=== PATIENT | female | born 1945 | race African-American/Black ===

== ENCOUNTER 2017-07-20 17:20 | Inpatient (IN) | payer OTHER ==
[2017-07-20] VITALS (14 sets, daily range): BP systolic 143–184; BP diastolic 71–104
[~2017-07-20] VITALS: Ht 154.9 cm; Wt 70.6 kg
--- NOTE | ~2017-07-20 | HC ---
[facility] [place] [address] CONSULTATION Name: COOKIE CASAS Room #: 451-P [facility] IN M.R.#: [id number] Admission: 07/20/17 Attend Phys: Stephen Galeana MD Discharge: 07/31/17 Date of : 49 Report #: [id number] THIS REPORT FOR: //name// CC: Stephen Vazquez DATE OF SERVICE: 07/21/2017 REASON FOR CONSULTATION: Recurrent angioedema. HISTORY OF PRESENT ILLNESS: The patient is a 57-year-old female who has a known history of recurrent angioedema. She had airway distress and angioedema of the upper airway and was admitted to [facility]. On 07/18/2017, she was intubated and transferred to [facility]. She has been intubated. She has been sedated and on the ventilator. She failed a weaning trial with CPAP. Extubation is planned for this week. She is stable now. We have been consulted due to her airway. PHYSICAL EXAMINATION: A middle age woman, sedated and on ventilator. She has multiple central lines in. She has oral intubation. Neck is simple without evidence of swelling. Her lips are normal in appearance. While her tongue was protruding some, I palpated her tongue and it easily pushes back into her mouth. There is no obvious tongue swelling on palpation or examination. ASSESSMENT AND PLAN: Recurrent angioedema with emergent airway compromise requiring intubation and airway management. Now, stable and improved on steroids and IV Benadryl. RECOMMENDATION: 1. Extubate when there are more people around ____ on a non-holiday, preferably tomorrow. 2. Continue steroids and IV Benadryl for now. 3. Add Zyrtec 20 mg orally when extubated tomorrow. 4. Outpatient evaluation by Allergy/Immunology. <ELECTRONICALLY SIGNED> By: Pito Crowell MD 09/09/17 [id number] Pito Crowell MD /nt
--- NOTE | ~2017-07-20 | HC ---
[facility] [place] [address] CONSULTATION Name: COOKIE CASAS Room #: 451-P ADM IN M.R.#: [id number] Admission: 07/20/17 Attend Phys: Stephen Galeana MD Discharge: Date of : 49 Report #: [id number] THIS REPORT FOR: //name// CC: Enriqueta Vazquez DATE OF SERVICE: 07/20/2017 REFERRING PROVIDER: Enriqueta Tilley, nurse practitioner and Dr. Stephen Galeana. REASON FOR CONSULTATION: Respiratory failure. HISTORY OF PRESENT ILLNESS: Our group was asked to see the patient in consultation while hospitalized at [facility]. The patient transferred from [facility] where she had recurrent episode of angioedema. The patient is currently on mechanical ventilatory support, unable to give any further history. We were asked to evaluate for further recommendations regarding ventilator weaning and transferred to our facility for ENT services and evaluation. The patient apparently has significant food allergies, exact etiology unclear, has been on Benadryl and systemic steroids for this. Currently, resting comfortably in bed and sedated on propofol and Versed drips, apparently this is required to provide adequate sedation. ALLERGIES: Unknown. PAST MEDICAL HISTORY: 1. Diabetes mellitus type 2. 2. Hypertension. 3. Hyperlipidemia. CURRENT MEDICATIONS: 1. Albuterol. 2. Benadryl 25 q. 6 hours. 3. Enoxaparin. 4. Fentanyl p.r.n. 5. Insulin sliding scale. 6. Solu-Medrol 62.5 twice daily. 7. Propofol GTT. 8. Pepcid. SOCIAL HISTORY: Unobtainable due to current status. FAMILY HISTORY: Unobtainable due to current status. [facility] [address] [place] [address] CONSULTATION Name: COOKIE CASAS Mat Room #: 451-P ADM IN M.R.#: [id number] Admission: 07/20/17 Attend Phys: Stephen Galeana MD Discharge: Date of : 49 Report #: [id number] REVIEW OF SYSTEMS: Otherwise, unobtainable due to current status. PHYSICAL EXAMINATION: VITAL SIGNS: Afebrile, pulse 70s, respiratory rate of 14, still on the ventilator and blood pressure ____. GENERAL: This is an elderly woman on mechanical ventilatory support, no distress. ENT: Reveals some tongue edema. A 7.[address]. NECK: Supple, no lymphadenopathy. LUNGS: Clear. No wheezes or crackles or significant secretions appreciated. CARDIOVASCULAR: Heart regular. No murmurs noted. ABDOMEN: Soft, nontender, no masses, no hepatosplenomegaly. EXTREMITIES: Warm, 2+ pulses, no edema. INTEGUMENT: Without rash. NEUROLOGIC: The patient arousable to deep stimuli, but heavily sedated at this time. LABORATORY DATA: Chest x-ray revealed clear lung ozuna, endotracheal tube in good position and right IJ central line is in place. IMPRESSION: 1. Respiratory failure due to angioedema. 2. Angioedema of unclear etiology, likely a food allergy, exact culprit is unclear. 3. Hypertension. 4. Diabetes mellitus type 2. SUGGESTIONS: 1. Minimize sedation. 2. Mechanical ventilator weaning efforts. The patient should tolerate spontaneous breathing trials ____ upper airway edema, ____ extubation, appears to be markedly improved. 3. Continue steroids and anti-histamines. 4. ENT evaluation. 5. At some point post extubation, allergy evaluation. 6. Further recommendations to follow. Thank you for requesting our suggestions. <ELECTRONICALLY SIGNED> By: Maged Velazco MD 07/31/17 1304 2219 0427 Maged Velazco MD /nt
--- NOTE | ~2017-07-20 | O ---
[facility] [place] [address] OPERATIVE REPORT Name: COOKIE CASAS Room #: 240-P ADM IN M.R.#: [id number] Admission: 07/20/17 Attend Phys: Stephen Galeana MD Discharge: Date of : 47 Report #: [id number] THIS REPORT FOR: //name// CC: Stephen Vazquez MD DATE OF SERVICE: 07/23/2017 PREOPERATIVE DIAGNOSIS: Otolaryngic reexamination of upper airway secondary to airway obstruction. POSTOPERATIVE DIAGNOSIS: Otolaryngic reexamination of upper airway secondary to airway obstruction. OPERATION PERFORMED: Flexible nasopharyngoscopy. INDICATIONS: The patient is a 71-year-old female transferred to [place] after innervation at [facility] on 07/17/2017 for presumed angioedema. The patient has been unable to be extubated, I was asked to reevaluate. She was initially evaluated by my partner, Dr. Crowell on 07/20/2017. DESCRIPTION OF PROCEDURE: In the patient's ICU room, topical anesthesia was achieved with 4% lidocaine and 1% Doug-Synephrine nasal spray. After an appropriate period, flexible laryngoscope was passed through the right naris. Examination was made of the upper airway, which was made difficult by retained secretions, endotracheal tube and orogastric tube present in the pharynx. Examination revealed a very swollen pharynx at the level of the base of tongue extending into the hypopharynx. There was edema of the epiglottis surrounding an endotracheal tube in place. The edema was about a 4 mm airway. The oropharynx was suctioned during the examination by the patient's nurse. Endotracheal tube was then removed. Recommendations were made to not extubate at this point. Discussion was given to her and Dr. Velazco. <ELECTRONICALLY SIGNED> By: Mike Cotto MD 07/25/17 1626 1519 1544 Mike Cotto MD /nt
--- NOTE | ~2017-07-20 | O ---
[facility] [place] [address] OPERATIVE REPORT Name: COOKIE CASAS Room #: 240-P ADM IN M.R.#: [id number] Admission: 07/20/17 Attend Phys: Stephen Galeana MD Discharge: Date of : 47 Report #: [id number] THIS REPORT FOR: //name// CC: Stephen Vazquez MD DATE OF SERVICE: 07/25/2017 SURGEON: Mike Cotto MD. PREOPERATIVE DIAGNOSES: 1. Angioedema, upper pharynx. 2. Airway obstruction. POSTOPERATIVE DIAGNOSES: 1. Angioedema, upper pharynx. 2. Airway obstruction. OPERATION PERFORMED: 1. Tracheotomy with Paul flap reconstruction. 2. Direct laryngoscopy with biopsy. INDICATIONS FOR PROCEDURE: The patient is a 71-year-old female admitted through the Emergency Department on transfer from [facility] last week. She had presented to [place] with airway obstruction requiring intubation on 07/17/2017. She has been intubated since then with the possibility of extubation secondary to persistent airway edema. This is her fourth episode of angioedema, this one is the most serious. No specific trigger has been isolated. The patient has been consulted to an electrical logging operator. DESCRIPTION OF PROCEDURE: The patient was brought to the operating room and placed supine on the operating table. After adequate general anesthesia was achieved via an indwelling endotracheal tube, the shoulder was placed and neck was extended. She was prepped with Betadine and draped in a sterile fashion. Planned incision was marked out just above the manubrium in a relaxed skin tension line and injected with 1% Xylocaine with 1:100,000 epinephrine. After an appropriate period, an incision was made, carried down through skin and subcutaneous tissue and platysma. This was carried down to the strap muscle. Subplatysmal flaps were elevated superiorly and inferiorly. Strap muscles were divided vertically in the midline with a harmonic shear. The isthmus of the thyroid was dissected off the trachea, clamped between Rosanne hemostats, divided and suture ligated with 2-0 silk. Entrance was made into the trachea between [facility] [address] [place] [address] OPERATIVE REPORT Name: CASASCOOKIE Room #: 240-P [facility] IN [facility].#: [id number] Admission: 07/20/17 Attend Phys: Stephen Galeana MD Discharge: Date of : 47 Report #: [id number] the second and third tracheal ring. A standard Paul flap was created inferiorly based. This was sutured to the inferior flap. In concert with anesthesia, the indwelling endotracheal tube was removed and a #6 Shiley cuffed, nonfenestrated tracheotomy tube was placed without problem. This was connected to the anesthesia circuit and end tidal CO2 confirmed. The skin flaps were loosely closed with interrupted 3-0 chromic. The 2-0 silk was used to suture the trach flanges in place, no trach ties were used as the patient has an indwelling internal jugular vein catheter in place. She tolerated the procedure well. Once this was completed, she was turned 90 degrees and the direct laryngoscopy was undertaken. The patient had an indwelling orogastric tube in place. There was complete obstruction of the oral airway with edema encasing the remaining orogastric tube. There was ulceration from the endotracheal tube, but no other mass lesion was noted, although this was a difficult exam secondary to the edema. Similar edema was noted at the epiglottis, it made it very difficult to even visualize the vocal cords. Biopsy was taken of this edema in the upper pharynx. The laryngoscope was then removed. The patient was then returned to anesthesia, awake without difficulty, returned to recovery in good condition. Sponge and needle counts were correct. There were no complications and the blood loss was about 10 mL. She is returned to the Intensive Care Unit for further monitoring. <ELECTRONICALLY SIGNED> By: Mike Cotto MD 07/25/17 1646 1616 1637 Mike Cotto MD /nt
--- NOTE | ~2017-07-20 | P ---
[facility] [place] [address] PROCEDURE REPORT Name: COOKIE CASAS Room #: 451-P ADM IN M.R.#: [id number] Admission: 07/20/17 Attend Phys: Stephen Galeana MD Discharge: Date of : 47 Report #: [id number] THIS REPORT FOR: //name// CC: Stephen Vazquez DATE OF SERVICE: 07/22/2017 PROCEDURE: Fiberoptic bronchoscopy. INDICATION: Assess for upper airway edema. The patient with angioedema, failing attempts at removal of endotracheal tube. PROCEDURE NOTATION: After discussing risks, benefits of planned procedure with the family, they desired to proceed. After obtaining informed consent, bronchoscopy equipment was brought to the bedside. The patient was already sedated with propofol on mechanical ventilatory support. Initially, the patient received 1% lidocaine down the endotracheal tube to provide topical anesthesia. Bronchoscope was then passed in the endotracheal tube where the distal trachea was seen. This was evaluated and appeared to be patent without any significant endobronchial disease or secretions. This was removed. Bronchoscope was then passed through an oral bite block and assessed the upper airway. There was significant edema all the way down to the area of the epiglottis. The OG and endotracheal tube were clearly identified, but there is significant edema encompassing the airway that was completely encircling the endotracheal tube. The patient tolerated well. No noted complications. IMPRESSION: Ongoing laryngeal edema. RECOMMENDATIONS: 1. No extubation at this time. 2. May need tracheostomy for definitive care if does not continue to improve. 3. We will discuss with family. <ELECTRONICALLY SIGNED> By: Maged Velazco MD 07/31/17 1304 1307 1819 Maged Velazco MD /nt
--- NOTE | ~2017-07-20 | HC ---
[facility] [place] [address] CONSULTATION Name: COOKIE CASAS Room #: 451-P [facility] IN .R.#: [id number] Admission: 07/20/17 Attend Phys: Stephen Galeana MD Discharge: 07/31/17 Date of : 49 Report #: [id number] THIS REPORT FOR: //name// CC: Stephen Vazquez DATE OF SERVICE: 07/31/2017 HISTORY OF PRESENT ILLNESS: The patient is a 71-year-old -[place] female, originally admitted to [facility] with her hereditary angioedema and respiratory failure. She was transferred to [facility] due to the need for potential ENT involvement. She did end up undergoing a tracheotomy on 07/25/2017. She has Dobhoff in place. Pulmonary was involved with her respiratory failure. We are seeing her in rehabilitation medicine consultation. PAST MEDICAL HISTORY: Includes hereditary angioedema. She has a history of hypertension, hyperlipidemia, diabetes mellitus. MEDICATIONS: Please see the full medication listing. ALLERGIES: TRAMADOL. FAMILY HISTORY: No pertinent family history. SOCIAL HISTORY: Lives with her in house, no steps, premorbid community ambulator without gait aids. is retired. REVIEW OF SYSTEMS: Did not offer any current complaints of chest pain, shortness of breath or abdominal discomfort. No focal extremity pain complaints. PHYSICAL EXAMINATION: GENERAL: A 71-year-old rather slender -[place] female in no obvious distress. VITAL SIGNS: Last recorded temperature is 97.8, pulse 80, respirations 16, blood pressure 124/66. NEUROLOGIC: Facies are symmetric. Dobhoff feeding tube is in place. She has the tracheotomy with the T-piece in place. She is alert, pleasant, appropriate, appears to be a good historian. Upper extremities, she appears to have some clubbing of her fingers. Functional range of motion with strength grade 4/5. Lower extremities, no focal calf swelling. Strength appears to be probably a grade 4-/5. She was noted to have poor sitting balance, but yesterday was able to stand for 2 minutes with the ability to lock her knees. Tone of the lower extremities appears to be intact. [facility] [address] [place] [address] CONSULTATION Name: COOKIE CASAS Mat Room #: 451-P [facility] IN [facility].#: [id number] Admission: 07/20/17 Attend Phys: Stephen Galeana MD Discharge: 07/31/17 Date of : 47 Report #: [id number] ASSESSMENT: A 71-year-old white female with the following problem list: 1. 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 2. Status post tracheotomy 07/25/2017. 3. Generalized debilitation. 4. Hypertension. 5. Hyperlipidemia. 6. Diabetes mellitus. PLAN: Would agree with a long-term acute care stay as is currently being planned. I encouraged the patient and her to continue in the therapies including while she is at the LTAC to try to further improve her strength and endurance. She has already made some progress during her therapies here at [facility]. Discussion was held with the social media coordinator regarding my recommendations. <ELECTRONICALLY SIGNED> By: Grady Sparks MD 08/06/17 1232 1218 0033 Grady Sparks MD /PMT
--- NOTE | ~2017-07-20 | S ---
[facility] [place] [place] [place] [address] SURGICAL PATH RPT PROCEDURE Name: COOKIE PEDRAZA Room #: 240-P ADM IN M.R.#: [id number] Admission: 07/20/17 Date of : 49 Discharge: Report #: [id number] Path Case #: [id number] PATHOLOGY REPORT COLLECTION DATE: 07/25/2017 RECEIVED DATE: 07/28/2017 SUBMITTING PHYS: Dr. Mike Cotto OTHER PHYS: Dr. Kervin Vazquez SPECIMEN(S) RECEIVED: A.Nasopharnx angioedema biopsy * * * * * * * * * * * * FINAL DIAGNOSIS: Nasopharynx angioedema biopsy: - Fragments lined by reactive squamous epithelium associated with marked acute inflammation. - No apoptotic bodies identified within the surface. - Abundant fibrinopurulent material present consistent with acute inflammation. - Negative for dysplasia or malignancy. COMMENT: Co-review: Dr. Vale Zhao. (IUV:mml; 07/29/2017) PATHOLOGIST: Christina Hope M.D. REPORT ELECTRONICALLY SIGNED BY: Christina Hope M.D. DATE/TIME: 07/29/2017 16:40 * * * * * * * * * * * * GROSS PATHOLOGY: The specimen is received in formalin, labeled "Cookie Pedraza nasopharynx angioedema biopsy" and consists of a portion of toth-tsai, glistening rubbery to mucoid tissue measuring 0.7 x 0.3 x 0.2 cm. The specimen is filtered and entirely submitted in cassette A1. (JWP; 07/28/2017) CLINICAL HISTORY: Respiratory failure, angioedema INITIAL CPT CODE(S): A; 65303 Professional services performed by [facility] at [facility] [address] [place] [address] SURGICAL PATH RPT PROCEDURE Name: COOKIE PEDRAZA Room #: 240-P ADM IN M.R.#: [id number] Admission: 07/20/17 Date of : 49 Discharge: Report #: [id number] Path Case #: [id number] [facility] [address], [place] [address] Technical services performed by [facility] at [address] [place] [address], [facility] [address], [place] [address]. [facility] [address] [address] PHONE: [phone] DIRECTOR: Miguel Hnad M.D. * * * END OF REPORT * * *
[2017-07-20] MEDS ORDERED: NORVASC5 MG PO (22:28)
[2017-07-20] MEDS ORDERED: ZOCOR20 MG PO (22:29)
[2017-07-20] MEDS ORDERED: ASPIR 8181 MG PO (22:29)
[2017-07-20] MEDS ORDERED: MAXZIDE-25 MG1 EACH PO (22:30)
[2017-07-21] VITALS (59 sets, daily range): BP systolic 112–197; BP diastolic 63–94
[2017-07-21 04:18] LABS: CALCIUM 8.4 mg/dL (8.5-10.1); CREATININE 0.8 mg/dL (0.6-1.0)
[2017-07-21 04:19] LABS: HEMATOCRIT 39.1 % (37.0-47.0); HEMOGLOBIN 12.4 gm/dL (12.0-15.0); MCH 28.2 pg (26.0-34.0); MCHC 31.8 g/dL (28.0-37.0); MCV 88.8 fL (80.0-100.0); RBC 4.4 mil/uL (4.20-5.00); WBC 20.5 thou/uL (4.0-11.0)
[2017-07-21 05:34] LABS: ABG SAMPLE TYPE ARTERIAL; BE(vivo) -1.4 mmol/L (-2 to +3); HCO3 22.1 mmol/L (22.0-26.0); O2(CT) 18.1 mL/dL (15.0-23.0); O2Hb 97.8 % (92.0-98.0); PCO2 33.6 mmHg (35.0-45.0); pH 7.436 (7.360-7.450); sO2 98.7 % (92.0-98.0); tCO2 23.1 mmol/L (24.0-30.0)
[2017-07-21 05:35] LABS: ABG COMMENT AC12 500 +5 30%; STICK SITE LRA; TIDAL VOLUME 500 ml
[2017-07-21 11:18] LABS: ABG SAMPLE TYPE ARTERIAL; BE(vivo) 0.4 mmol/L (-2 to +3); HCO3 25.6 mmol/L (22.0-26.0); LACTATE 1.32 mmol/L (0.5-2.0); O2(CT) 18.9 mL/dL (15.0-23.0); PCO2 43.4 mmHg (35.0-45.0); PO2 121.8 mmHg (80.0-100.0); STICK SITE R.BRACHIAL; pH 7.388 (7.360-7.450); sO2 98.4 % (92.0-98.0); tCO2 26.9 mmol/L (24.0-30.0)
[2017-07-21 11:19] LABS: Pressure Support 8 cm H20; TIDAL VOLUME 440 ml
[2017-07-21 11:20] LABS: ABG COMMENT CPAP TRIAL
[2017-07-22] VITALS (30 sets, daily range): BP systolic 100–188; BP diastolic 49–106
[2017-07-22 03:33] LABS: HEMATOCRIT 37.2 % (37.0-47.0); HEMOGLOBIN 12.4 gm/dL (12.0-15.0); MCH 29.2 pg (26.0-34.0); MCHC 33.3 g/dL (28.0-37.0); MCV 87.7 fL (80.0-100.0); RBC 4.25 mil/uL (4.20-5.00); RDW 14.9 % (10.5-14.5); WBC 17.2 thou/uL (4.0-11.0)
[2017-07-22 03:41] LABS: CALCIUM 8.3 mg/dL (8.5-10.1); CREATININE 0.9 mg/dL (0.6-1.0); POTASSIUM 3.3 mmol/L (3.5-5.1)
[2017-07-22 10:23] LABS: MAGNESIUM 2.1 mg/dL (1.8-2.4)
[2017-07-23] VITALS (29 sets, daily range): BP systolic 105–203; BP diastolic 52–84
[2017-07-23 05:40] LABS: HEMATOCRIT 36.3 % (37.0-47.0); HEMOGLOBIN 11.7 gm/dL (12.0-15.0); MCH 28.8 pg (26.0-34.0); MCHC 32.3 g/dL (28.0-37.0); MCV 89.1 fL (80.0-100.0); RBC 4.07 mil/uL (4.20-5.00); RDW 15.1 % (10.5-14.5); WBC 17.1 thou/uL (4.0-11.0)
[2017-07-23 05:47] LABS: CALCIUM 8.6 mg/dL (8.5-10.1); CREATININE 0.9 mg/dL (0.6-1.0); POTASSIUM 4.1 mmol/L (3.5-5.1)
[2017-07-24] VITALS (25 sets, daily range): BP systolic 112–192; BP diastolic 57–76
[2017-07-24 05:29] LABS: HEMATOCRIT 34.6 % (37.0-47.0); HEMOGLOBIN 11.5 gm/dL (12.0-15.0); MCH 29.2 pg (26.0-34.0); MCHC 33.1 g/dL (28.0-37.0); MCV 88.3 fL (80.0-100.0); PLATELET COUNT 230 thou/uL (150-400); RBC 3.92 mil/uL (4.20-5.00); RDW 15.4 % (10.5-14.5)
[2017-07-24 05:43] LABS: CALCIUM 8.6 mg/dL (8.5-10.1); CREATININE 0.8 mg/dL (0.6-1.0); POTASSIUM 4.4 mmol/L (3.5-5.1)
[2017-07-24 05:51] LABS: MANUAL DIFF YES
[2017-07-24 08:58] LABS: ABSOLUTE NEUTROPHILS 14.6 thou/uL (1.4-8.2); ANISOCYTOSIS SLIGHT; TOTAL CELL COUNT 100
[2017-07-25] VITALS (39 sets, daily range): BP systolic 106–210; BP diastolic 42–94
[2017-07-26] VITALS (54 sets, daily range): BP systolic 123–188; BP diastolic 59–105
[2017-07-26 10:00] LABS: HEMATOCRIT 37.3 % (37.0-47.0); HEMOGLOBIN 11.9 gm/dL (12.0-15.0); MCH 28.2 pg (26.0-34.0); MCHC 31.9 g/dL (28.0-37.0); MCV 88.6 fL (80.0-100.0); RBC 4.21 mil/uL (4.20-5.00); RDW 15.4 % (10.5-14.5); WBC 19.7 thou/uL (4.0-11.0)
[2017-07-26 10:01] LABS: MANUAL DIFF YES; PLATELET COUNT 322 thou/uL (150-400)
[2017-07-26 10:12] LABS: ALBUMIN 2.5 g/dL (3.4-5.0); CALCIUM 8.7 mg/dL (8.5-10.1); POTASSIUM 3.9 mmol/L (3.5-5.1); TOTAL BILIRUBIN 0.7 mg/dL (<0.1-1.0); TOTAL PROTEIN 6.2 g/dL (6.4-8.2)
[2017-07-26 11:43] LABS: ABSOLUTE NEUTROPHILS 17.9 thou/uL (1.4-8.2); ANISOCYTOSIS 1+; POLYCHROMASIA OCCASIONAL; TOTAL CELL COUNT 100
[2017-07-26 21:28] LABS: POTASSIUM 3.5 mmol/L (3.5-5.1)
[2017-07-27] VITALS (35 sets, daily range): BP systolic 139–195; BP diastolic 56–107
[2017-07-27 05:06] LABS: HEMATOCRIT 30.6 % (37.0-47.0); MCH 28.6 pg (26.0-34.0); MCHC 32.5 g/dL (28.0-37.0); MCV 88.1 fL (80.0-100.0); RBC 3.47 mil/uL (4.20-5.00); RDW 15.4 % (10.5-14.5); WBC 14.3 thou/uL (4.0-11.0)
[2017-07-27 05:14] LABS: POTASSIUM 3.9 mmol/L (3.5-5.1)
[2017-07-27 05:54] LABS: HEMOGLOBIN 9.9 gm/dL (12.0-15.0)
[2017-07-27 05:55] LABS: MANUAL DIFF YES; PLATELET COUNT 246 thou/uL (150-400)
[2017-07-27 10:05] LABS: ABSOLUTE NEUTROPHILS 12.4 thou/uL (1.4-8.2); ANISOCYTOSIS 1+; TOTAL CELL COUNT 100
[2017-07-27 14:51] LABS: CALCIUM 9.9 mg/dL (8.5-10.1); CREATININE 1.1 mg/dL (0.6-1.0); PHOSPHORUS 2.8 mg/dL (2.5-4.9); POTASSIUM 3.4 mmol/L (3.5-5.1)
[2017-07-28] VITALS (31 sets, daily range): BP systolic 112–184; BP diastolic 58–87
[2017-07-28 05:51] LABS: MCH 28.9 pg (26.0-34.0); MCHC 33.2 g/dL (28.0-37.0); MCV 86.8 fL (80.0-100.0); PLATELET COUNT 267 thou/uL (150-400); RBC 3.46 mil/uL (4.20-5.00); RDW 14.8 % (10.5-14.5); WBC 18.5 thou/uL (4.0-11.0)
[2017-07-28 05:56] LABS: MANUAL DIFF YES
[2017-07-28 06:04] LABS: CALCIUM 10.3 mg/dL (8.5-10.1); POTASSIUM 3.3 mmol/L (3.5-5.1)
[2017-07-28 09:00] LABS: ABSOLUTE NEUTROPHILS 16.5 thou/uL (1.4-8.2); TOTAL CELL COUNT 100
[2017-07-28 11:47] LABS: ABG SAMPLE TYPE ARTERIAL; BE(vivo) 9.4 mmol/L (-2 to +3); HCO3 34.5 mmol/L (22.0-26.0); LACTATE 1.04 mmol/L (0.5-2.0); O2(CT) 15.2 mL/dL (15.0-23.0); pH 7.457 (7.360-7.450); sO2 98.3 % (92.0-98.0); tCO2 36.1 mmol/L (24.0-30.0)
[2017-07-28 11:49] LABS: Pressure Support 8 cm H20; STICK SITE R.RADIAL
[2017-07-28 11:50] LABS: ABG COMMENT CPAP TRIAL X 1 HOUR
[2017-07-28 15:56] LABS: ABG SAMPLE TYPE ARTERIAL; BE(vivo) 10.7 mmol/L (-2 to +3); HCO3 35.8 mmol/L (22.0-26.0); LACTATE 2.05 mmol/L (0.5-2.0); O2(CT) 15.6 mL/dL (15.0-23.0); O2Hb 96.6 % (92.0-98.0); PCO2 49.8 mmHg (35.0-45.0); PO2 101.2 mmHg (80.0-100.0); pH 7.474 (7.360-7.450); sO2 97.9 % (92.0-98.0); tCO2 37.3 mmol/L (24.0-30.0)
[2017-07-28 15:58] LABS: STICK SITE R.RADIAL
[2017-07-29] VITALS (28 sets, daily range): BP systolic 125–171; BP diastolic 58–102
[2017-07-29 05:42] LABS: HEMATOCRIT 31.3 % (37.0-47.0); HEMOGLOBIN 10.2 gm/dL (12.0-15.0); MCH 28.6 pg (26.0-34.0); MCHC 32.6 g/dL (28.0-37.0); MCV 87.8 fL (80.0-100.0); PLATELET COUNT 289 thou/uL (150-400); RBC 3.57 mil/uL (4.20-5.00); RDW 14.8 % (10.5-14.5); WBC 22.8 thou/uL (4.0-11.0)
[2017-07-29 05:43] LABS: MANUAL DIFF YES
[2017-07-29 05:50] LABS: CALCIUM 9.7 mg/dL (8.5-10.1); CREATININE 1.2 mg/dL (0.6-1.0); POTASSIUM 3.8 mmol/L (3.5-5.1)
[2017-07-29 06:47] LABS: ABSOLUTE NEUTROPHILS 19.6 thou/uL (1.4-8.2); ANISOCYTOSIS 1+; TOTAL CELL COUNT 100
[2017-07-30] VITALS (13 sets, daily range): BP systolic 111–148; BP diastolic 59–81
[2017-07-31 04:09] VITALS: BP 142/74
[2017-07-31 05:44] LABS: HEMATOCRIT 30.3 % (37.0-47.0); HEMOGLOBIN 9.8 gm/dL (12.0-15.0); MCH 28.9 pg (26.0-34.0); MCHC 32.3 g/dL (28.0-37.0); MCV 89.3 fL (80.0-100.0); PLATELET COUNT 261 thou/uL (150-400); RDW 14.6 % (10.5-14.5)
[2017-07-31 05:47] LABS: CALCIUM 8.5 mg/dL (8.5-10.1); POTASSIUM 4.2 mmol/L (3.5-5.1)
[2017-07-31 06:06] LABS: MANUAL DIFF YES
[2017-07-31 08:05] VITALS: BP 128/73
[2017-07-31 08:50] LABS: ABSOLUTE NEUTROPHILS 17.7 thou/uL (1.4-8.2); METAMYELOCYTES 1 %; TOTAL CELL COUNT 100
[2017-07-31 08:51] LABS: ANISOCYTOSIS SLIGHT; HYPOCHROMASIA 1+
[2017-07-31] MEDS ORDERED: CLARITIN10 M2 PER TUBE (11:09)
[2017-07-31] MEDS ORDERED: ALBUTEROL2.5 MG/0.5 INH (11:10)
[2017-07-31 11:50] VITALS: BP 124/66
[2017-07-31 16:22] VITALS: BP 122/71
== END 2017-07-31 18:16 | DRG 4 ==
LOC: 2N 17:20 → ICU 20:33 → 4W 07-30 13:41
PROVIDERS: Allergy & Immunology; Family Medicine; Internal Medicine Pulmonary Disease; Nurse Practitioner Family
PROC: 5A1955Z Respiratory Ventilation, Greater than 96 Consecutive Hours (ICD-10-PCS; principal; 2017-07-20)
PROC: 02HV33Z Insertion of Infusion Device into Superior Vena Cava, Percutaneous Approach (ICD-10-PCS; 2017-07-21)
PROC: 0BJ08ZZ Inspection of Tracheobronchial Tree, Via Natural or Artificial Opening Endoscopic (ICD-10-PCS; 2017-07-22)
PROC: 09BN8ZX Excision of Nasopharynx, Via Natural or Artificial Opening Endoscopic, Diagnostic (ICD-10-PCS; 2017-07-23)
PROC: 0B110F4 Bypass Trachea to Cutaneous with Tracheostomy Device, Open Approach (ICD-10-PCS; 2017-07-25)
PROC: 30233K1 Transfusion of Nonautologous Frozen Plasma into Peripheral Vein, Percutaneous Approach (ICD-10-PCS; 2017-07-26)
DX: J96.00 Acute respiratory failure, unspecified whether with hypoxia or hypercapnia (principal); T78.3XXA Angioneurotic edema, initial encounter; I10 Essential (primary) hypertension; E78.5 Hyperlipidemia, unspecified; J98.8 Other specified respiratory disorders; T38.0X5A Adverse effect of glucocorticoids and synthetic analogues, initial encounter; E11.649 Type 2 diabetes mellitus with hypoglycemia without coma; Z79.899 Other long term (current) drug therapy; Z88.8 Allergy status to other drugs, medicaments and biological substances
CPT/HCPCS: 10045; 10078; 50101; 50386; 50398; 50517; 52190; 56526; 56528; 57006; 62110; 62900